=== PATIENT | male | born 1985 | race Caucasian/White ===

== ENCOUNTER → 2023-12-30 11:19 | Outpatient (CLI) | payer OTHER, SELFPAY ==
--- NOTE | 2023-12-30 11:21 | DI.MRI.S_ITS ---
PROCEDURE: MR LUMBAR SPINE WO CON INDICATIONS: Low back pain TECHNIQUE: Noncontrast sagittal T1 spin echo and T2 fast echo, sagittal STIR, and T2 fast spin echo through the lumbar spine. In cases with scoliosis, additional coronal T2 fast spin echo may be performed. COMPARISON: None. FINDINGS: Image quality: Excellent. Alignment and Curvature: There is normal bony alignment. Bone Marrow: Marrow is of normal overall signal. No acute vertebral body compression fractures. Spinal Cord: Conus medullaris terminates at the T12-L1 disc space level. Visualized cord demonstrates normal signal and size. Paraspinous Soft Tissues: No paravertebral masses. T12-L1: No significant spinal canal stenosis or neural foraminal narrowing. L1-L2: No significant spinal canal stenosis or neural foraminal narrowing. L2-L3: No significant spinal canal stenosis or neural foraminal narrowing. L3-L4: No significant spinal canal stenosis or neural foraminal narrowing. L4-L5: Disc desiccation and mild disc bulging most prominent in the foraminal zones, which result in mild bilateral neural foraminal narrowing without significant spinal canal stenosis. L5-S1: Disc desiccation and mild loss of disc space height with focal central disc protrusion. Mild facet hypertrophy. Disc material crowds the left lateral recess and abuts the traversing left S1 nerve root without definite impingement mild bilateral neural foraminal narrowing. No significant spinal canal stenosis. IMPRESSION: 1. At L5-S1, central disc protrusion and mild degenerative changes result in crowding of the left lateral recess with disc material abutting the traversing left S1 nerve root without definite impingement. Mild bilateral neural foraminal narrowing. No significant spinal canal stenosis. 2. At L4-5, minimal degenerative changes result in mild narrowing of the bilateral neural foramina. Approved by: Lawrence Jaime M.D. on 12/30/2023 at 16:14
== END ==
LOC: MRI 11:20
PROVIDERS: Referring Provider Student in an Organized Health Care Education/Training Program; Visit Provider Student in an Organized Health Care Education/Training Program
DX: M51.27 Other intervertebral disc displacement, lumbosacral region (principal); M47.817 Spondylosis without myelopathy or radiculopathy, lumbosacral region; M48.07 Spinal stenosis, lumbosacral region; M48.061 Spinal stenosis, lumbar region without neurogenic claudication
CPT/HCPCS: 72148